=== PATIENT | female | born 1945 | race Caucasian/White ===

== ENCOUNTER 2018-11-28 20:35 | Emergency (ER) | payer MEDICARE ==
[2018-11-28 21:19] VITALS: BP 162/75
[2018-11-28] MEDS ORDERED: Albuterol/Ipratropium NEB.SOL* Albuterol 2.5 MG/Ipratropium 0.5 MG 3 ML INH ONE (21:24)
[2018-11-28] MEDS ORDERED: Acetaminophen TAB* 325 MG PO ONE (21:25)
--- NOTE | 2018-11-28 21:31 | UC ---
FLU HPI - HPI Summary HPI Summary: ONSET 3-4 DAYS AGO WITH SORE THROAT THAT HAS RESOLVED. THEN CHEST CONGESTION , YELLOW SINUS DRAINAGE, RUNNY NOSE. HOARNESS. CONSTANT COUGHING, CHEST CONGESTION. FATIUGE. - History of Current Complaint Chief Complaint: UCRespiratory Stated Complaint: COUGH,THROAT Time Seen by Provider: 11/28/18 21:18 Hx Obtained From: Patient ?: No Onset/Duration: Sudden Onset, Lasting Days Severity Currently: Mild Severity Initially: Mild Pain Intensity: 0 Associated Signs & Symptoms: Positive: Fever, Myalgia, Cough, Sore Throat, Headache - Allergy/Home Medications Allergies/Adverse Reactions: Allergies Allergy/AdvReac Type Severity Reaction Status Date / Time Iodine and Iodide Containing Allergy Severe giant hives Verified 11/28/18 21:06 Produc adhesive tape Allergy Unknown burn Verified 11/28/18 21:06 legions cephalexin Allergy Unknown Rash Verified 11/28/18 21:06 clindamycin Allergy Unknown Unknown Verified 11/28/18 21:06 Reaction Details dicloxacillin [From Pathocil] Allergy Unknown Unknown Verified 11/28/18 21:08 Reaction Details doxazosin [From Cardura] Allergy Unknown heavy Verified 11/28/18 21:06 palpatations, blurry vision furosemide [From Lasix] Allergy Unknown Unknown Verified 11/28/18 21:06 Reaction Details hydrochlorothiazide Allergy Unknown Unknown Verified 11/28/18 21:08 [From Maxzide] Reaction Details nickel Allergy Unknown rash welts Verified 11/28/18 21:08 triamterene [From Maxzide] Allergy Unknown Unknown Verified 11/28/18 21:08 Reaction Details chromic suture Allergy Unknown "violent"swelling Uncoded 11/28/18 21:06 and pain Home Medications: Home Medications Calcium Carbonate [Calcium] 500 mg PO DAILY 11/28/18 [History Confirmed 11/28/18 ] Candesartan Cilexetil [Atacand] 16 mg PO DAILY 11/28/18 [History Confirmed 11/28] Chlorpheniramine/Dextromethorp [Coricidin Hbp Cough & Col] 1 tab PO DAILY PRN [History Confirmed 11/28/18] Cholecalciferol TAB* [Vitamin D TAB*] 400 unit PO DAILY 11/28/18 [History Confirmed 11/28/18] Clopidogrel TAB* [Plavix TAB*] 75 mg PO DAILY 11/28/18 [History Confirmed ] Magnesium Oxide [Magnesium] 250 mg PO DAILY 11/28/18 [History Confirmed 11/28/18 ] Multivitamin [Multivitamins] 1 cap PO DAILY 11/28/18 [History Confirmed 11/28/18 ] Oxybutynin Chloride [Ditropan Xl] 15 mg PO DAILY 11/28/18 [History Confirmed 02/10] Pantoprazole TAB * [Protonix TAB*] 40 mg PO DAILY 11/28/18 [History Confirmed ] Psyllium TRE* [Metamucil TRE*] 1 pkt PO DAILY 11/28/18 [History Confirmed ] Simvastatin [Zocor] 40 mg PO DAILY 11/28/18 [History Confirmed 11/28/18] Vitamin B Complex TAB* [B Complex-50*] 1 tab PO DAILY 11/28/18 [History Confirmed 11/28/18] Vitamin E Acetate [Vitamin E] 1,000 unit PO DAILY 11/28/18 [History Confirmed ] Zinc 100 mg PO DAILY 11/28/18 [History Confirmed 11/28/18] cloNIDine TAB* [Catapres 0.1 MG TAB*] 0.1 mg PO DAILY 11/28/18 [History Confirmed 11/28/18] PMH/Surg Hx/FS Hx/Imm Hx Previously Healthy: No Endocrine History: Diabetes, Thyroid Disease, Dyslipidemia GI/ History: Gastroesophageal Reflux - Surgical History Surgical History: Yes Surgery Procedure, Year, and Place: APPENDECTOMY,CHOLYCYSTECTOMY.,CARPAL TUNNEL - BILAT, HYSTERECTOMY, BREAST BX, COLONOSCOPY - Family History Known Family History: Positive: Cardiac Disease, Hypertension - Social History Alcohol Use: None Substance Use Type: None Smoking Status (MU): Never Smoked Tobacco Review of Systems All Other Systems Reviewed And Are Negative: Yes Constitutional: Positive: Chills, Fatigue Skin: Positive: Negative Eyes: Positive: Eye Redness ENT: Positive: Sore Throat, Nasal Discharge, Sinus Congestion, Sinus Pain/ Tenderness Respiratory: Positive: Cough Cardiovascular: Positive: Negative Gastrointestinal: Positive: Negative Genitourinary: Positive: Negative Motor: Positive: Negative Neurovascular: Positive: Negative Musculoskeletal: Positive: Negative Neurological: Positive: Headache Psychological: Positive: Negative Is Patient Immunocompromised?: Yes Physical Exam Triage Information Reviewed: Yes Appearance: Ill-Appearing, Pain Distress, Obese Vital Signs: Initial Vital Signs Temp 98.8 F 11/28/18 21:08 Pulse 105 11/28/18 21:08 Resp 26 11/28/18 21:08 BP 162/75 11/28/18 21:08 Pulse Ox 96 11/28/18 21:08 Vital Signs Reviewed: Yes Eyes: Positive: Conjunctiva Inflamed ENT: Positive: Pharyngeal erythema, TM bulging Dental Exam: Normal Neck exam: Normal Respiratory: Positive: Chest non-tender, No respiratory distress, No accessory muscle use, Wheezing, Inspiration Cardiovascular: Positive: No Murmur, Pulses Normal, Tachycardia Abdominal Exam: Normal Abdomen Description: Positive: Nontender, No Organomegaly, Soft Bowel Sounds: Positive: Present Musculoskeletal Exam: Normal Musculoskeletal: Positive: Other: - wheelchair bound at baseline Neurological Exam: Normal Psychological Exam: Normal Skin Exam: Normal Flu Course/Dx - Course Course Of Treatment: hx obtained, exam performed, meds reviewed, Neb treatment given, tylenol given. - Differential Dx/Diagnosis Differential Diagnosis/HQI/PQRI: Bronchitis, Influenza, Pneumonia, Upper Respiratory Infection Provider Diagnosis: Sinusitis, Bronchitis Discharge - Sign-Out/Discharge Documenting (check all that apply): Patient Departure All imaging exams completed and their final reports reviewed: No Studies - Discharge Plan Condition: Stable Disposition: HOME Prescriptions: Azithromyxin TRE (NF) [Z-Tre (Zithromax) 250 mg tabs #6] 2 tab PO .TODAY, THEN 1 DAILY #6 tab Patient Education Materials: Sinusitis (ED) Referrals: Joseph Vo MD [Primary Care Provider] - Additional Instructions: 1. get rest and increase fluids 2. Salt water gargles 3. tylenol for pain and fever 4. Take the medication as prescribed. - Billing Disposition and Condition Condition: STABLE Disposition: Home
[2018-11-28] MEDS ORDERED: Albuterol HFA INHALER* 8 gm MDI INH ONE (22:09)
[2018-11-28] MEDS ORDERED: Benzonatate CAP* 100 MG PO ONE (22:09)
[2018-11-30 08:42] LABS: Influenza A Molecular NEGATIVE (Negative); Influenza B Molecular NEGATIVE (Negative)
== END 2018-11-28 22:30 | disposition home or self-care (01) ==
LOC: UCCORT 20:35
DX: J32.9 Chronic sinusitis, unspecified (principal); J40 Bronchitis, not specified as acute or chronic; E66.9 Obesity, unspecified; K21.9 Gastro-esophageal reflux disease without esophagitis; E11.9 Type 2 diabetes mellitus without complications; Z88.8 Allergy status to other drugs, medicaments and biological substances; Z91.09 Other allergy status, other than to drugs and biological substances; Z88.1 Allergy status to other antibiotic agents; Z79.899 Other long term (current) drug therapy
CPT/HCPCS: 99203; A9270-GY; G0463